=== PATIENT | male | born 1960 | race Caucasian/White ===

== ENCOUNTER → 2016-07-19 | Outpatient (CLI) | payer BC ==
[2016-07-19 10:28] LABS: Basophils % (A) 1 %; CH 31.2; CHCM 34.3; Eosinophils # (A) 0.2 k/uL (0-0.7); Eosinophils % (A) 3 %; HCT 48.6 % (39.0-53.0); HDW 2.75; HGB 16.2 gm/dL (13.0-17.5); Luc # (Auto) 0.08; Luc % (Auto) 1; Lymphocytes # (A) 1.6 k/uL (1.0-4.8); Lymphocytes % (A) 26 %; MCH 30.5 pg (25.0-35.0); MCHC 33.4 g/dL (31.0-37.0); MCV 91.4 fL (80.0-100.0); Mean Platelet Volume 7.2; Monocytes # (A) 0.2 k/uL (0-1.0); Monocytes % (A) 4 %; Neutrophils # (A) 3.9 k/uL (1.3-7.7); Neutrophils % (A) 65 %; RBC 5.32 m/uL (4.30-5.90); RDW 13.2 % (11.5-15.5)
[2016-07-19 10:31] LABS: Appearance,Urine Clear (Clear); Bilirubin,Urine Negative (Negative); Glucose,Urine (UA) Negative (Negative); Ketones,Urine Negative (Negative); Leukocyte Esterase,Urine Negative (Negative); Nitrite,Urine Negative (Negative); PH, Urine 5.5 (5.0-8.0); Particle Count 833; Protein,Urine Negative (Negative); RBC,Urine <1 /hpf (0-5); Specific Gravity,Urine 1.013 (1.001-1.035); UA Billing (MACRO vs. MICRO) MICRO; Urobilinogen,Urine <2.0 mg/dL (<2.0); WBC,Urine <1 /hpf (0-5)
[2016-07-19 10:44] LABS: ALT 42 U/L (21-72); AST 23 U/L (17-59); Alkaline Phosphatase 74 U/L (38-126); Anion Gap 13 mmol/L; Blood Urea Nitrogen 17 mg/dL (9-20); Calcium 9.3 mg/dL (8.4-10.2); Carbon Dioxide 27 mmol/L (22-30); Chloride 102 mmol/L (98-107); Cholesterol 288 mg/dL (<200); Creatine Kinase 289 U/L (55-170); Glucose 173 mg/dL (74-99); HDL Cholesterol 51 mg/dL (40-60); Non-African American GFR(MDRD) >60 (>60 ml/min/1.73 sqM); Sodium 142 mmol/L (137-145); Total Bilirubin 1.5 mg/dL (0.2-1.3); Total Protein 7.4 g/dL (6.3-8.2); Triglycerides 163 mg/dL (<150); Uric Acid 6.1 mg/dL (3.5-8.5)
[2016-07-19 11:14] LABS: Prostate Specific Antigen 4.43 ng/mL (0.00-4.00)
[2016-07-19 11:20] LABS: Hemoglobin A1C 7.3 % (4.2-6.1)
== END | disposition home or self-care (01) ==
LOC: LABWHC1 09:56
PROVIDERS: ATTEND Internal Medicine
DX: N40.0 Benign prostatic hyperplasia without lower urinary tract symptoms (principal); E78.00 Pure hypercholesterolemia, unspecified; R73.01 Impaired fasting glucose; N20.0 Calculus of kidney
CPT/HCPCS: 36415; 80053; 80061; 81001; 82306; 82550; 83036; 84153; 84439; 84443; 84550; 85025

== ENCOUNTER 2016-12-25 22:04 | Emergency (ER) | payer BC ==
[2016-12-25 22:11] VITALS: TEMP 98.5
[2016-12-25] MEDS ORDERED: SODIUM CHLORIDE 0.9% 1,000 ML IV STA (22:54)
[2016-12-25 23:07] LABS: Basophils % (A) 0 %; CH 31.6; CHCM 35.4; Eosinophils # (A) 0.3 k/uL (0-0.7); Eosinophils % (A) 3 %; HCT 42.1 % (39.0-53.0); HDW 2.74; HGB 15.5 gm/dL (13.0-17.5); Luc # (Auto) 0.15; Luc % (Auto) 2; Lymphocytes # (A) 1.9 k/uL (1.0-4.8); Lymphocytes % (A) 20 %; MCV 89.4 fL (80.0-100.0); Mean Platelet Volume 7.3; Monocytes # (A) 0.4 k/uL (0-1.0); Monocytes % (A) 4 %; Neutrophils # (A) 6.9 k/uL (1.3-7.7); Neutrophils % (A) 71 %; RBC 4.71 m/uL (4.30-5.90); RDW 13.1 % (11.5-15.5); WBC 9.7 k/uL (3.8-10.6); WBC (Perox) 9.81
[2016-12-25 23:16] LABS: Appearance,Urine Clear (Clear); Bilirubin,Urine Negative (Negative); Glucose,Urine (UA) Negative (Negative); Ketones,Urine Negative (Negative); Leukocyte Esterase,Urine Negative (Negative); Mucus,Urine Rare /hpf; Nitrite,Urine Negative (Negative); Particle Count 770; Protein,Urine Negative (Negative); RBC,Urine 15 /hpf (0-5); UA Billing (MACRO vs. MICRO) MICRO; Urobilinogen,Urine <2.0 mg/dL (<2.0); WBC,Urine 1 /hpf (0-5)
[2016-12-25 23:25] LABS: ALT 46 U/L (21-72); AST 31 U/L (17-59); Alkaline Phosphatase 86 U/L (38-126); Amylase 69 U/L (30-110); Anion Gap 13 mmol/L; Blood Urea Nitrogen 25 mg/dL (9-20); Calcium 9.1 mg/dL (8.4-10.2); Carbon Dioxide 22 mmol/L (22-30); Chloride 106 mmol/L (98-107); Glucose 163 mg/dL (74-99); Non-African American GFR(MDRD) >60 (>60 ml/min/1.73 sqM); Potassium 3.7 mmol/L (3.5-5.1); Sodium 141 mmol/L (137-145); Total Protein 7.3 g/dL (6.3-8.2)
--- NOTE | 2016-12-25 23:46 | ED ---
Abdominal Pain HPI - General Chief Complaint: Abdominal Pain Stated Complaint: left side pain Time Seen by Provider: 12/25/16 22:33 Source: patient, RN notes reviewed Mode of arrival: ambulatory Limitations: no limitations - History of Present Illness Initial Comments: 56-year-old male presents emergency Department chief complaint of left-sided abdominal pain. Patient states that this pain comes and goes. Patient states that'll come all of a sudden and then be gone. Patient hasn't not noticed any blood in the urine. Patient does admit to history of kidney stones of this. Patient states he was concerned due to his continued pain so he thought that he should be evaluated. Patient states that the been any vomiting he did have some nausea. Patient states it's been to the left side. Patient states the pain wasn't as painful as it was when he had kidney stones so he does not know if it is that.Patient denies any recent fever, chills, shortness of breath, chest pain, back pain, vomiting, numbness or tingling, dysuria or hematuria, constipation or diarrhea, headaches or visual changes, or any other current symptoms. - Related Data Home Medications Medication Instructions Recorded Confirmed Ibuprofen [Motrin] 600 mg PO DAILY PRN 12/25/16 12/25/16 Previous Rx's Medication Instructions Recorded Hydrocodone/Acetaminophen [[place] 1 each PO Q6HR PRN #20 tab 12/26/16 5-325] Ketorolac [Toradol] 10 mg PO Q6HR #20 tab 12/26/16 Ondansetron Odt [Zofran ODT] 4 mg PO Q8HR PRN #20 tab 12/26/16 Tamsulosin [Flomax] 0.4 mg PO DAILY #5 cap 12/26/16 Allergies Allergy/AdvReac Type Severity Reaction Status Date / Time No Known Allergies Allergy Verified 12/25/16 22:52 Review of Systems ROS Statement: Those systems with pertinent positive or pertinent negative responses have been documented in the HPI. ROS Other: All systems not noted in ROS Statement are negative. Past Medical History Past Medical History: No Reported History History of Any Multi-Drug Resistant Organisms: None Reported Additional Past Surgical History / Comment(s): CATARACT Past Psychological History: No Psychological Hx Reported Smoking Status: Never smoker Past Alcohol Use History: None Reported Past Drug Use History: None Reported General Exam - General Exam Comments Initial Comments: General: The patient is awake and alert, in no distress, and does not appear acutely ill. Eye: Pupils are equal, round and reactive to light, extra-ocular movements are intact; there is normal conjunctiva bilaterally. No signs of icterus. Ears, nose, mouth and throat: There are moist mucous membranes and no oral lesions. Neck: The neck is supple, there is no tenderness. Cardiovascular: There is a regular rate and rhythm. No murmur, rub or gallop is appreciated. Respiratory: Lungs are clear to auscultation, respirations are non-labored, breath sounds are equal. No wheezes, stridor, rales, or rhonchi. Gastrointestinal: Soft, non-distended, non-tender abdomen without masses or organomegaly noted. There is no rebound or guarding present. No CVA tenderness. Bowel sounds are unremarkable. Back: There is no tenderness to palpation in the midline. There is no obvious deformity. No rashes noted. Musculoskeletal: Normal ROM, no tenderness, There is no pedal edema. There is no calf tenderness or swelling. Sensation intact. Pulses equal bilaterally 2+. Neurological: CN II-XII intact, There are no obvious motor or sensory deficits. Coordination appears grossly intact. Speech is normal. Skin: Skin is warm and dry and no rashes or lesions are noted. Psychiatric: Cooperative, appropriate mood & affect, normal judgment. Limitations: no limitations Course Vital Signs 12/25/16 12/25/16 12/26/16 22:09 22:23 00:25 Temperature 98.5 F Pulse Rate 66 70 75 Respiratory 18 18 18 Rate Blood Pressure 130/76 177/77 149/69 O2 Sat by Pulse 100 98 97 Oximetry Medical Decision Making - Medical Decision Making 56-year-old male presents emergency Department chief complaint of left sided abdominal pain. At this time patient's CAT scan is reviewed additional 2.5 mm stone. This time patient does have a history of stones. With the patient medication as discussed follow-up with urology and he is given follow-up parameters. We discussed all patient's questions and he stated he understood and is agreement with plan. They will be discharged home. - Lab Data Result diagrams: 12/25/16 22:46 12/25/16 22:46 Lab Results 12/25/16 12/25/16 12/25/16 Range/Units 22:46 22:46 22:57 WBC 9.7 (3.8-10.6) k/uL RBC 4.71 (4.30-5.90) m/uL Hgb 15.5 (13.0-17.5) gm/dL Hct 42.1 (39.0-53.0) % MCV 89.4 (80.0-100.0) fL MCH 33.0 (25.0-35.0) pg MCHC 37.0 (31.0-37.0) g/dL RDW 13.1 (11.5-15.5) % Plt Count 199 (150-450) k/uL Neutrophils % 71 % Lymphocytes % 20 % Monocytes % 4 % Eosinophils % 3 % Basophils % 0 % Neutrophils # 6.9 (1.3-7.7) k/uL Lymphocytes # 1.9 (1.0-4.8) k/uL Monocytes # 0.4 (0-1.0) k/uL Eosinophils # 0.3 (0-0.7) k/uL Basophils # 0.0 (0-0.2) k/uL Sodium 141 (137-145) mmol/L Potassium 3.7 (3.5-5.1) mmol/L Chloride 106 (98-107) mmol/L Carbon Dioxide 22 (22-30) mmol/L Anion Gap 13 mmol/L BUN 25 H (9-20) mg/dL Creatinine 1.20 (0.66-1.25) mg/dL Est GFR (MDRD) Af Amer >60 (>60 ml/min/1.73 sqM) Est GFR (MDRD) Non-Af >60 (>60 ml/min/1.73 sqM) Glucose 163 H (74-99) mg/dL Calcium 9.1 (8.4-10.2) mg/dL Total Bilirubin 1.0 (0.2-1.3) mg/dL AST 31 (17-59) U/L ALT 46 (21-72) U/L Alkaline Phosphatase 86 (38-126) U/L Total Protein 7.3 (6.3-8.2) g/dL Albumin 4.5 (3.5-5.0) g/dL Amylase 69 (30-110) U/L Lipase 99 (23-300) U/L Urine Color Light Yellow Urine Appearance Clear (Clear) Urine pH 6.0 (5.0-8.0) Ur Specific [place] 1.010 (1.001-1.035) Urine Protein Negative (Negative) Urine Glucose (UA) Negative (Negative) Urine Ketones Negative (Negative) Urine Blood Small H (Negative) Urine Nitrite Negative (Negative) Urine Bilirubin Negative (Negative) Urine Urobilinogen <2.0 (<2.0) mg/dL Ur Leukocyte Esterase Negative (Negative) Urine RBC 15 H (0-5) /hpf Urine WBC 1 (0-5) /hpf Urine Mucus Rare H (None) /hpf - Radiology Data Radiology results: report reviewed, image reviewed Disposition Clinical Impression: Left ureteral stone Disposition: HOME SELF-CARE Condition: Stable Instructions: Kidney Stones (ED) Additional Instructions: Please use medication as discussed. Please follow up with family doctor if symptoms have not improved over the next two days. Please return to the emergency room if your symptoms increase or worsen or for any other concerns. Prescriptions: Hydrocodone/Acetaminophen [[place] 5-325] 1 each PO Q6HR PRN #20 tab PRN Reason: Pain Ketorolac [Toradol] 10 mg PO Q6HR #20 tab Ondansetron Odt [Zofran ODT] 4 mg PO Q8HR PRN #20 tab PRN Reason: Nausea Tamsulosin [Flomax] 0.4 mg PO DAILY #5 cap Referrals: Agatha Graham MD [Primary Care Provider] - 1-2 days Ricky Jose MD [STAFF PHYSICIAN] - 1-2 days Time of Disposition: 01:10
[2016-12-26 00:27] VITALS: PULSE 75
--- NOTE | 2016-12-26 00:49 | CT ---
EXAM: CT ABDOMEN PELVIS WITHOUT CONTRAST INDICATION: Pain TECHNIQUE: Multiple, contiguous 3 mm axial cuts of the abdomen and pelvis are obtained from the lung bases to the ischial tuberosities. Sagittal and coronal reformatted images are available. This CT exam was performed using one or more of the following dose reduction techniques: automated exposure control, adjustment of the mA and/or kV according to patient size, and/or use of iterative reconstruction technique. CTDI 19.50, DLP 973.50 COMPARISON: None FINDINGS: Lung bases are clear. Liver: Unenhanced liver is unremarkable. Spleen: Unenhanced spleen is unremarkable. Pancreas: Unenhanced pancreas is unremarkable. Gallbladder: Gallbladder is unremarkable by CT exam. Adrenal glands: Unenhanced adrenal glands are unremarkable. Kidneys: 2 mm distal left ureteral stone. Additional 2.5 mm nonobstructing stone left kidney. Minimal left perinephric stranding likely related to passage of the stone. Cannot entirely exclude pyelonephritis. Minimal left hydronephrosis. No other urinary tract stones. Unenhanced right kidney is unremarkable.. GI tract: No bowel obstruction. No free fluid or free air or acute mesenteric inflammatory changes. Moderate sized omental fat-containing right inguinal hernia. No bowel hernia. No diverticulosis. Appendix: Appendix is not seen however no secondary signs for acute appendicitis identified. Urinary bladder: Unopacified urinary bladder is unremarkable. Abdominal aorta: Abdominal aorta normal caliber. Retroperitoneum. No adenopathy. Osseous structures: No acute osseous abnormality. Prostate gland is enlarged measuring 5 x 5 x 4.8 cm. IMPRESSION: 1. 2 mm distal left ureteral stone. Additional 2.5 mm nonobstructing stone left kidney. Minimal left perinephric stranding likely related to passage of the stone. Cannot entirely exclude pyelonephritis. Minimal left hydronephrosis. No other urinary tract stones. 2. Prostate gland is enlarged. 3. No free fluid or free air or bowel obstruction. 4. Moderate sized omental fat-containing right inguinal hernia. No bowel hernia.
[2016-12-26] MEDS ORDERED: HYDROmorphone 1 MG/ML 1 ML SYRINGE IVP STA (01:02)
[2016-12-26] MEDS ORDERED: ONDANSETRON 4 MG/2 ML VIAL IVP STA (01:02)
[2016-12-26] MEDS ORDERED: KETOROLAC 30 MG/ML 1 ML VIAL IVP STA (01:02)
[2016-12-26] MEDS ORDERED: TAMSULOSIN 0.4 MG CAP.ER.24H PO STA (01:03)
[2016-12-26 01:45] VITALS: BP 163/81; RESP 16
== END 2016-12-26 01:41 | disposition home or self-care (01) ==
LOC: EC 22:04
DX: N20.1 Calculus of ureter (principal); R11.0 Nausea
CPT/HCPCS: 99284; 96374; 96375 ×2; 96361 ×2; 36415; 80053; 82150; 83690; 85025; 81001; 87040; 87086; 74176; J2405; J1885; J1170

== ENCOUNTER 2017-10-07 16:02 | Emergency (ER) | payer BC ==
[2017-10-07] MEDS ORDERED: SODIUM CHLORIDE 0.9% 1,000 ML IV ONE (16:08)
[2017-10-07] MEDS ORDERED: KETOROLAC 30 MG/ML 1 ML VIAL IVP STA (16:13)
--- NOTE | 2017-10-07 16:15 | ED ---
General Adult HPI - General Chief complaint: Back Pain/Injury Stated complaint: Back pain Time Seen by Provider: 10/07/17 16:07 Source: patient, RN notes reviewed Mode of arrival: ambulatory Limitations: no limitations - History of Present Illness Initial comments: 57-year-old male presents emergency Department chief complaint of right flank pain. Patient states that has been bothering him for the last 3-4 days but worsened today. Patient states he feels a in his lower ribs on the right. Patient states that certain movements and occasionally takes deep respiration does hurt he has no shortness of breath and orthopnea. Denies any chest pain. Denies any current nausea vomiting diarrhea constipation no dysuria no hematuria he does have a history kidney stones. - Related Data Home Medications Medication Instructions Recorded Confirmed Ibuprofen [Motrin] 600 mg PO DAILY PRN 12/25/16 10/07/17 Sulfamethox-Tmp 800-160Mg [Bactrim 1 tab PO ONCE 10/07/17 10/07/17 DS 800-160 mg] Previous Rx's Medication Instructions Recorded Ibuprofen [Motrin] 600 mg PO Q8HR PRN #30 tab 10/07/17 traMADol HCl [Ultram] 50 mg PO Q6H PRN #20 tab 10/07/17 Allergies Allergy/AdvReac Type Severity Reaction Status Date / Time No Known Allergies Allergy Verified 10/07/17 16:28 Review of Systems ROS Statement: Those systems with pertinent positive or pertinent negative responses have been documented in the HPI. ROS Other: All systems not noted in ROS Statement are negative. Past Medical History Past Medical History: No Reported History History of Any Multi-Drug Resistant Organisms: None Reported Additional Past Surgical History / Comment(s): CATARACT Past Psychological History: No Psychological Hx Reported Smoking Status: Never smoker Past Alcohol Use History: None Reported Past Drug Use History: None Reported General Exam Limitations: no limitations General appearance: alert, in no apparent distress Head exam: Present: atraumatic, normocephalic, normal inspection Respiratory exam: Present: normal lung sounds bilaterally. Absent: respiratory distress, wheezes, rales, rhonchi, stridor Cardiovascular Exam: Present: regular rate, normal rhythm, normal heart sounds. Absent: systolic murmur, diastolic murmur, rubs, gallop, clicks GI/Abdominal exam: Present: soft, normal bowel sounds. Absent: distended, tenderness, guarding, rebound, rigid Back exam: Present: full ROM. Absent: tenderness, CVA tenderness (R), CVA tenderness (L) Skin exam: Present: warm, dry, intact, normal color. Absent: rash Course Vital Signs 10/07/17 16:03 Temperature 98.9 F Pulse Rate 76 Respiratory 18 Rate Blood Pressure 179/90 O2 Sat by Pulse 98 Oximetry Medical Decision Making - Medical Decision Making 57-year-old male presents from for right flank pain. Patient appears pain over his intercostal lower region. Patient x-rays, laboratory does feel improved after Toradol. He states his pain is currently gone. Patient will be discharged with anti-inflammatories and Tylenol codeine as needed. Work normal carotid return parameters were discussed. - Lab Data Result diagrams: 10/07/17 16:29 10/07/17 16:29 Lab Results 10/07/17 10/07/17 10/07/17 Range/Units 16:29 16:29 16:29 WBC 8.4 (3.8-10.6) k/uL RBC 5.06 (4.30-5.90) m/uL Hgb 15.7 (13.0-17.5) gm/dL Hct 43.9 (39.0-53.0) % MCV 86.9 (80.0-100.0) fL MCH 31.1 (25.0-35.0) pg MCHC 35.8 (31.0-37.0) g/dL RDW 12.7 (11.5-15.5) % Plt Count 206 (150-450) k/uL Neutrophils % 63 % Lymphocytes % 29 % Monocytes % 4 % Eosinophils % 3 % Basophils % 0 % Neutrophils # 5.3 (1.3-7.7) k/uL Lymphocytes # 2.4 (1.0-4.8) k/uL Monocytes # 0.3 (0-1.0) k/uL Eosinophils # 0.2 (0-0.7) k/uL Basophils # 0.0 (0-0.2) k/uL Sodium 141 (137-145) mmol/L Potassium 3.9 (3.5-5.1) mmol/L Chloride 102 (98-107) mmol/L Carbon Dioxide 24 (22-30) mmol/L Anion Gap 15 mmol/L BUN 15 (9-20) mg/dL Creatinine 1.10 (0.66-1.25) mg/dL Est GFR (CKD-EPI)AfAm 86 (>60 ml/min/1.73 sqM) Est GFR (CKD-EPI)NonAf 74 (>60 ml/min/1.73 sqM) Glucose 136 H (74-99) mg/dL Calcium 9.6 (8.4-10.2) mg/dL Total Bilirubin 1.1 (0.2-1.3) mg/dL AST 29 (17-59) U/L ALT 36 (21-72) U/L Alkaline Phosphatase 80 (38-126) U/L Total Protein 7.6 (6.3-8.2) g/dL Albumin 4.4 (3.5-5.0) g/dL Amylase 50 (30-110) U/L Lipase 135 (23-300) U/L Urine Color Light Yellow Urine Appearance Clear (Clear) Urine pH 7.0 (5.0-8.0) Ur Specific [place] 1.014 (1.001-1.035) Urine Protein Negative (Negative) Urine Glucose (UA) Negative (Negative) Urine Ketones Negative (Negative) Urine Blood Negative (Negative) Urine Nitrite Negative (Negative) Urine Bilirubin Negative (Negative) Urine Urobilinogen <2.0 (<2.0) mg/dL Ur Leukocyte Esterase Negative (Negative) Disposition Clinical Impression: Strain of muscle at thorax level, Intercostal muscle strain Disposition: HOME SELF-CARE Condition: Stable Instructions: Muscle Strain (ED) Additional Instructions: Please return to the Emergency Department if symptoms worsen or any other concerns. Prescriptions: Ibuprofen [Motrin] 600 mg PO Q8HR PRN #30 tab PRN Reason: Pain traMADol HCl [Ultram] 50 mg PO Q6H PRN #20 tab PRN Reason: Pain Referrals: Agatha Graham MD [Primary Care Provider] - 1-2 days Time of Disposition: 17:05
[2017-10-07 16:36] LABS: Appearance,Urine Clear (Clear); Bilirubin,Urine Negative (Negative); Blood,Urine Negative (Negative); Color,Urine Light Yellow; Glucose,Urine (UA) Negative (Negative); Ketones,Urine Negative (Negative); Leukocyte Esterase,Urine Negative (Negative); Nitrite,Urine Negative (Negative); Protein,Urine Negative (Negative); Specific Gravity,Urine 1.014 (1.001-1.035); Urobilinogen,Urine <2.0 mg/dL (<2.0)
[2017-10-07 16:40] LABS: Basophils % (A) 0 %; Eosinophils # (A) 0.2 k/uL (0-0.7); Eosinophils % (A) 3 %; HCT 43.9 % (39.0-53.0); HGB 15.7 gm/dL (13.0-17.5); Lymphocytes # (A) 2.4 k/uL (1.0-4.8); Lymphocytes % (A) 29 %; MCH 31.1 pg (25.0-35.0); MCHC 35.8 g/dL (31.0-37.0); MCV 86.9 fL (80.0-100.0); Mean Platelet Volume 7.2; Monocytes # (A) 0.3 k/uL (0-1.0); Monocytes % (A) 4 %; Neutrophils # (A) 5.3 k/uL (1.3-7.7); Neutrophils % (A) 63 %; Platelet Count 206 k/uL (150-450); RBC 5.06 m/uL (4.30-5.90); RDW 12.7 % (11.5-15.5); WBC 8.4 k/uL (3.8-10.6)
[2017-10-07 16:50] LABS: Albumin 4.4 g/dL (3.5-5.0); Calcium 9.6 mg/dL (8.4-10.2); Potassium 3.9 mmol/L (3.5-5.1); Total Bilirubin 1.1 mg/dL (0.2-1.3); Total Protein 7.6 g/dL (6.3-8.2)
--- NOTE | 2017-10-07 16:55 | XR ---
EXAMINATION TYPE: PA chest and right rib series DATE OF EXAM: 10/07/2017 COMPARISON: 12/19/2015 HISTORY: 57-year-old male right-sided posterior pain TECHNIQUE: 5 views FINDINGS: The cardiomediastinal silhouette, aorta, and pulmonary vasculature are within normal limits. Similar mild interstitial prominence. Otherwise, lungs and pleural spaces are clear. Evaluation of the right-sided ribs shows no evidence for displaced fracture or other discrete rib abn ormality. IMPRESSION: 1. Chronic changes, possible chronic bronchitis or asthma. Otherwise, no acute cardiopulmonary proces s. 2. No displaced right rib fracture.
--- NOTE | 2017-10-07 16:56 | XR ---
EXAMINATION TYPE: XR KUB DATE OF EXAM: 10/07/2017 CLINICAL DATA: 57-year-old male right-sided posterior pain, abdominal pain, PHH COMPARISON: 12/19/2015 FINDINGS: Lung bases are clear. No evidence for free intraperitoneal air. No dilated small bowel or air-fluid levels. Scattered air and stool seen throughout the colon extendi ng distally into the rectum. Mild to moderate stool burden. No suspicious calcifications identified. IMPRESSION: 1. Mild to moderate stool burden. 2.No evidence of bowel obstruction or free intraperitoneal air.
[2017-10-07 17:30] VITALS: BP 120/79; PULSE 74; RESP 16; TEMP 98
== END 2017-10-07 17:20 | disposition home or self-care (01) ==
LOC: EC 16:02
DX: S29.011A Strain of muscle and tendon of front wall of thorax, initial encounter (principal); R10.9 Unspecified abdominal pain
CPT/HCPCS: 36415; 80053; 82150; 83690; 85025; 81003; 71101; 74018; 99283; 96374; 96361; J1885

== ENCOUNTER 2019-02-12 07:28 | Emergency (ER) | payer BC ==
--- NOTE | 2019-02-12 08:05 | ED ---
Male Urogenital HPI - General Chief complaint: Urogenital Stated complaint: Urogenital Time Seen by Provider: 02/12/19 07:37 Source: patient Mode of arrival: ambulatory Limitations: no limitations - History of Present Illness Initial comments: 58-year-old male presenting today for chief complaint of urgency, difficulty and small stream. Patient states he believes he has prostate disorder. He states he does not take any medications. Patient states he does have history of a right inguinal hernia. He states this is not painful and he has had normal bowel movements. Patient denies any dysuria he denies blood in his urine. Denies any back pain. She does have history of kidney stones but this does not feel similar. Patient states that he does have history of UTIs as well however there has not been pain as when he has had a UTI in the past. He again states this feels different. Patient states he does have a small amount of pressure in the bladder after he empties it stating that it is not particularly he completely empties. Patient denies any severe pain or discomfort. Patient denies any fevers. Remaining review of systems negative upon arrival patient appears well no signs of acute distress. - Related Data Home Medications Medication Instructions Recorded Confirmed Ibuprofen [Motrin] 600 mg PO DAILY PRN 12/25/16 10/07/17 Sulfamethox-Tmp 800-160Mg [Bactrim 1 tab PO ONCE 10/07/17 10/07/17 DS 800-160 mg] Previous Rx's Medication Instructions Recorded Ibuprofen [Motrin] 600 mg PO Q8HR PRN #30 tab 10/07/17 traMADol HCl [Ultram] 50 mg PO Q6H PRN #20 tab 10/07/17 Tamsulosin [Flomax] 0.4 mg PO DAILY 7 Days #7 cap 02/12/19 Allergies Allergy/AdvReac Type Severity Reaction Status Date / Time No Known Allergies Allergy Verified 02/12/19 07:36 Review of Systems ROS Statement: Those systems with pertinent positive or pertinent negative responses have been documented in the HPI. ROS Other: All systems not noted in ROS Statement are negative. Past Medical History Past Medical History: No Reported History Additional Past Medical History / Comment(s): kidney stones History of Any Multi-Drug Resistant Organisms: None Reported Additional Past Surgical History / Comment(s): CATARACT Past Psychological History: No Psychological Hx Reported Smoking Status: Never smoker Past Alcohol Use History: None Reported Past Drug Use History: None Reported General Exam - General Exam Comments Initial Comments: General: The patient is awake and alert, in no distress, and does not appear acutely ill. Eye: Pupils are equal, round and reactive to light, extra-ocular movements are intact. No nystagmus. There is normal conjunctiva bilaterally. No signs of icterus. Cardiovascular: There is a regular rate and rhythm. No murmur, rub or gallop is appreciated. Gastrointestinal: Soft, non-distended, non-tender abdomen without masses or organomegaly noted. There is no rebound or guarding present. Refused rectal exam Musculoskeletal: Normal ROM, no tenderness. Strength 5/5. Sensation intact. Pulses equal bilaterally 2+. Neurological: A&O x 3. CN II-XII intact, There are no obvious motor or sensory deficits. Coordination appears grossly intact. Speech is normal. Skin: Skin is warm and dry and no rashes or lesions are noted. Psychiatric: Cooperative, appropriate mood & affect, normal judgment. Limitations: no limitations Course Vital Signs 02/12/19 02/12/19 07:34 08:50 Temperature 98.7 F 98.8 F Pulse Rate 86 83 Respiratory 18 13 Rate Blood Pressure 151/78 138/86 O2 Sat by Pulse 98 96 Oximetry Medical Decision Making - Medical Decision Making 58-year-old male presenting today for chief complaint of difficulty starting a stream, small stream and urgency. The patient's history of diabetes however does not take medications. He denies any shortness of breath or severe abdominal pain. States he says he does have some discomfort as an pressure in the bladder after pain denies any severe pain. Post residual void bladder scan less than 50 mL. Urinalysis revealed glucose no ketones. No evidence of infection. Patient states he had a prostate exam about 3 months ago he refused prostate exam today he states at that time he was told it was enlarged. Patient be treated symptomatically with Flomax. Patient was urged to follow up with his primary care provider on Thursday for glucose management states he is previously on metformin discussed dietary changes. Otherwise at this time I feel patient is stable for discharge with urology follow-up. Return parameters including abdominal pain and inability to urinate or any other concerning signs and symptoms were discussed the patient verbalized understanding - Lab Data Lab Results 08/10/19 08/10/19 Range/Units 08:00 08:04 POC Glucose (mg/dL) 255 H (75-99) mg/dL POC Glu Sheet Writer ID Faiza Carney Urine Color Yellow Urine Appearance Clear (Clear) Urine pH 5.5 (5.0-8.0) Ur Specific [place] 1.019 (1.001-1.035) Urine Protein Trace H (Negative) Urine Glucose (UA) 4+ H (Negative) Urine Ketones Negative (Negative) Urine Blood Trace H (Negative) Urine Nitrite Negative (Negative) Urine Bilirubin Negative (Negative) Urine Urobilinogen <2.0 (<2.0) mg/dL Ur Leukocyte Esterase Negative (Negative) Urine RBC <1 (0-5) /hpf Urine WBC 1 (0-5) /hpf Urine Mucus Rare H (None) /hpf Disposition Clinical Impression: Urinary urgency, Elevated random blood glucose level Disposition: HOME SELF-CARE Condition: Good Instructions (If sedation given, give patient instructions): Enlarged Prostate (BPH) (ED) Additional Instructions: Please use medication as discussed. Please follow-up with family doctor in the next 2 days, Urology-Dr. Lomas in 7 days. Please return to emergency room if the symptoms increase or worsen or for any other concerns. Prescriptions: Tamsulosin [Flomax] 0.4 mg PO DAILY 7 Days #7 cap Is patient prescribed a controlled substance at d/c from ED?: No Referrals: Agatha Graham MD [Primary Care Provider] - 1-2 days Oneil Lomas MD [STAFF PHYSICIAN] - 1-2 days Time of Disposition: 08:23
[2019-02-12 08:07] LABS: Glucose,Whole Blood 255 mg/dL (75-99)
[2019-02-12 08:15] LABS: Appearance,Urine Clear (Clear); Bilirubin,Urine Negative (Negative); Blood,Urine Trace (Negative); Color,Urine Yellow; Glucose,Urine (UA) 4+ (Negative); Ketones,Urine Negative (Negative); Leukocyte Esterase,Urine Negative (Negative); Mucus,Urine Rare /hpf; Nitrite,Urine Negative (Negative); PH, Urine 5.5 (5.0-8.0); Protein,Urine Trace (Negative); RBC,Urine <1 /hpf (0-5); Specific Gravity,Urine 1.019 (1.001-1.035); Urobilinogen,Urine <2.0 mg/dL (<2.0); WBC,Urine 1 /hpf (0-5)
[2019-02-12 08:51] VITALS: BP 138/86; PULSE 83; RESP 13; TEMP 98.8
== END 2019-02-12 08:42 | disposition home or self-care (01) ==
LOC: EC 07:28
DX: R39.15 Urgency of urination (principal); R73.9 Hyperglycemia, unspecified; R39.12 Poor urinary stream; Z87.442 Personal history of urinary calculi; Z87.440 Personal history of urinary (tract) infections
CPT/HCPCS: 36415; 51798; 81001; 99284

== ENCOUNTER → 2019-03-08 | Outpatient (CLI) | payer BC | END | disposition home or self-care (01) | LOC: LABWHC1 16:05 | PROVIDERS: ATTEND Urology | DX: R97.20 Elevated prostate specific antigen [PSA] (principal) | CPT/HCPCS: 36415; 84153 ==

== ENCOUNTER → 2019-09-19 | Outpatient (CLI) | payer BC | END | disposition home or self-care (01) | CPT/HCPCS: 80053; 80061; 83036; 84443; 85025; 93306 ==

== ENCOUNTER → 2019-12-02 | Outpatient (CLI) | payer BC | END | disposition home or self-care (01) | LOC: LABWHC1 09:30 | PROVIDERS: ATTEND Urology | DX: R97.20 Elevated prostate specific antigen [PSA] (principal) | CPT/HCPCS: 36415; 84153 ==

== ENCOUNTER 2020-08-26 12:18 | Emergency (ER) | payer BC ==
[2020-08-26 12:23] VITALS: RESP 18; TEMP 98.4
[2020-08-26] MEDS ORDERED: LIDOCAINE 5% PATCH TOPICAL STA (12:37)
[2020-08-26] MEDS ORDERED: KETOROLAC 15 MG/ML 1 ML VIAL IM STA (12:37)
--- NOTE | 2020-08-26 12:45 | ED ---
Back Pain HPI - General Chief Complaint: Back Pain/Injury Stated Complaint: back pain Time Seen by Provider: 08/26/20 12:26 Source: patient Limitations: no limitations - History of Present Illness Initial Comments: Raymond is a pleasant 59-year-old gentleman who presents to the ER today via private vehicle for evaluation 1 week of low back pain. Patient reports that last weekend he spent a significant amount of time attempting to start his pulse start snowblower and once he was successful at doing that spent hours snowblowing his property. Patient reports that after that had pain in his lower back. He reports that the pain is persisted throughout the week. Pain is worse in the mornings when he wakes up and seems to improve throughout the day. Patient denies any pain radiating down the legs he denies any numbness or tingling, denies any urinary or bowel retention or incontinence. Patient reports pain got worse throughout the week, he does note that on he had to take his to another hospital for surgery and sat in the waiting room for 20 hours which she felt worsen the pain. - Related Data Home Medications Medication Instructions Recorded Confirmed Finasteride [Proscar] 5 mg PO W/SUPPER 08/26/20 08/26/20 Tamsulosin [Flomax] 0.4 mg PO W/SUPPER 08/26/20 08/26/20 Previous Rx's Medication Instructions Recorded Lidocaine 5% Patch [Lidoderm] 1 patch TOPICAL DAILY #30 patch 08/26/20 Allergies Allergy/AdvReac Type Severity Reaction Status Date / Time No Known Allergies Allergy Verified 08/26/20 13:39 Review of Systems ROS Statement: Those systems with pertinent positive or pertinent negative responses have been documented in the HPI. ROS Other: All systems not noted in ROS Statement are negative. Past Medical History Past Medical History: No Reported History Additional Past Medical History / Comment(s): kidney stones History of Any Multi-Drug Resistant Organisms: None Reported Additional Past Surgical History / Comment(s): CATARACT Past Psychological History: No Psychological Hx Reported Smoking Status: Never smoker Past Alcohol Use History: None Reported Past Drug Use History: None Reported General Exam - General Exam Comments Initial Comments: Physical Exam GENERAL: Patient is well-developed and well-nourished. Patient is nontoxic and well-hydrated and is in no distress. HENT: Normocephalic, Atraumatic. EYES: PERRL, EOMI PULMONARY: Unlabored respirations. CARDIOVASCULAR: RRR Warm and well perfused extremities ABDOMEN: Non-distended SKIN: No rashes or bruising : Deferred NEUROLOGIC: Alert and oriented Normal speech Normal gait MUSCULOSKELETAL: Moving all extremities with no apparent injury PSYCHIATRIC: No SI/HI Limitations: no limitations Course Vital Signs 08/26/20 08/26/20 12:20 14:34 Temperature 98.4 F Pulse Rate 88 80 Respiratory 18 18 Rate Blood Pressure 178/82 152/78 O2 Sat by Pulse 100 99 Oximetry Medical Decision Making - Medical Decision Making Mechanical like back pain, xray will be obtained due to patients age Xray ordered Toradol and Lidoderm ordered Patient was reevaluated after medications reports improvement in discomfort, comfortable with the plan for discharge home will be given a starter pack of Tylenol 3 and a work note will follow up with his primary care provider this week for reevaluation - Lab Data Lab Results 08/26/20 Range/Units 12:55 POC Glucose (mg/dL) 219 H (75-99) mg/dL POC Glu Timber [employer]amer ID [facility]odeaux Nicole Disposition Clinical Impression: Mechanical back pain Disposition: HOME SELF-CARE Instructions (If sedation given, give patient instructions): Acute Low Back Pain (ED) Prescriptions: Lidocaine 5% Patch [Lidoderm] 1 patch TOPICAL DAILY #30 patch Is patient prescribed a controlled substance at d/c from ED?: No Referrals: None,Stated [Primary Care Provider] - 1-2 days
[2020-08-26 12:57] LABS: Glucose,Whole Blood 219 mg/dL (75-99)
--- NOTE | 2020-08-26 13:25 | XR ---
EXAMINATION TYPE: XR lumbar spine 2 or 3V DATE OF EXAM: 08/26/2020 CLINICAL HISTORY: pain TECHNIQUE: Three views of the lumbar spine are submitted. COMPARISON: None. FINDINGS: There are 5 lumbar type vertebral bodies identified. The lumbar spine shows satisfactory alignment w ithout evidence of acute fracture or dislocation. Vertebral body heights are within normal limits. Mi ld multilevel lumbar degenerative disc disease. Mild superior endplate loss of height involving L1, L 2 and L3 of uncertain age and/or etiology. Likely nonacute. The overlying soft tissue appears unremar kable. IMPRESSION: Mild multilevel lumbar degenerative disc disease. Mild superior endplate loss of height involving L1, L2 and L3 of uncertain age and/or etiology. Likely nonacute.
[2020-08-26] MEDS ORDERED: ACET/COD 300 MG/30 MG STARTER PACK 6 TAB BTL PO STA (14:13)
[2020-08-26 14:35] VITALS: BP 152/78; PULSE 80
== END 2020-08-26 14:35 | disposition home or self-care (01) ==
LOC: EC 12:18
DX: M54.5 Low back pain (principal); Y93.29 Activity, other involving ice and snow; X50.0XXA Overexertion from strenuous movement or load, initial encounter
CPT/HCPCS: 36415; 72100; 99284; 96372; J1885

== ENCOUNTER → 2021-01-12 | Outpatient (CLI) | payer BC | END | disposition home or self-care (01) | DX: R97.20 Elevated prostate specific antigen [PSA] (principal) ==